=== PATIENT | male | born 2000 | race Hispanic/Latino ===

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

== ENCOUNTER 2018-12-02 15:24 | Emergency (ER) | payer SELFPAY | END 2018-12-02 16:46 | disposition home or self-care (01) | LOC: ERS 15:24 | DX: J02.9 Acute pharyngitis, unspecified (principal); F17.210 Nicotine dependence, cigarettes, uncomplicated | CPT/HCPCS: 99283 ==

== ENCOUNTER 2021-07-16 03:37 | Inpatient (IN) | payer SELFPAY ==
[2021-07-16 03:52] LABS: Hemoglobin 16.9 g/dL (14.0-18.0); Mean Corpuscular HGB CONC 35.4 g/dL (32.0-36.0); Mean Corpuscular Hemoglobin 33.4 pg (27.0-31.0); Mean Corpuscular Volume 94.5 fL (78.0-98.0); Mean Platelet Volume 8.8 fL (7.4-10.4); Platelet Count 253 thou/uL (130-400); RBC Distribution Width 11.2 % (11.5-14.5); Red Blood Cell (RBC) Count 5.04 mill/uL (4.70-6.10); White Blood Cell (WBC) Count 14.6 thou/uL (4.8-10.8)
[2021-07-16 04:05] LABS: ALT (SGPT) 42 U/L (8-55); AST (SGOT) 32 U/L (5-34); Albumin 4.3 g/dL (3.5-5.0); Alkaline Phosphatase 62 U/L (40-110); Anion Gap 25 mmol/L (10-20); BUN (Urea Nitrogen) 13 mg/dL (8.9-20.6); Bilirubin, Total 0.4 mg/dL (0.2-1.2); Calc. Creatinine Clearance 0 mL/min (70-130); Calcium 8.6 mg/dL (7.8-10.44); Carbon Dioxide 13 mmol/L (22-29); Chloride 104 mmol/L (98-107); Globulin 2.5 g/dL (2.4-3.5); Glucose 139 mg/dL (70-105); Lipase 33 U/L (8-78); Potassium 3.7 mmol/L (3.5-5.1); Protein, Total 6.8 g/dL (6.0-8.3); Sodium 138 mmol/L (136-145)
[2021-07-16] MEDS ORDERED: CEFAZOLIN 1 GM VIAL ONE (04:06)
[2021-07-16 04:08] LABS: Prothrombin Time 12.7 sec (12.0-14.7)
[2021-07-16] MEDS ORDERED: ceFAZolin (BATCH) 2 GM/100 ML BAG ONE ×2 (04:08)
[2021-07-16] MEDS ORDERED: Boostrix 0.5 ML (Tdap) VIAL ONE (04:08)
[2021-07-16 04:09] LABS: PTT 26.2 sec (22.9-36.1)
[2021-07-16] MEDS ORDERED: Fentanyl 250 MCG/5 ML VIAL ONE (04:12)
[2021-07-16] MEDS ORDERED: Albumin 5% 0 ML ONE (04:12)
[2021-07-16] MEDS ORDERED: Lorazepam 2 MG/ML VIAL SLOW IVP PRN (04:57)
[2021-07-16] MEDS ORDERED: traMADol HCl 50 MG TAB PO PRN ×2 (04:57)
[2021-07-16] MEDS ORDERED: Ondansetron PF 4 MG/2 ML Vial IVP PRN (04:57)
[2021-07-16] MEDS ORDERED: Promethazine HCl 25 MG/ML VIAL IM PRN ×2 (04:57→14:23)
[2021-07-16] MEDS ORDERED: hydrALAZINE 20 MG/ML VIAL SLOW IVP PRN (04:57)
[2021-07-16] MEDS ORDERED: Sodium Chloride 0.9% 1,000 ML IV SCH ×2 (05:00→15:45)
[2021-07-16 05:14] LABS: Eosinophils 1 % (0-10); Lymphocytes 47 % (21-51); MDiff Complete? YES; Monocytes 5 % (0-10); Neutrophil 40 % (42-75); Platelet Morphology Comment Appears Adequate; RBC Morphology Normal; Reactive Lymphocytes 7 % (0-10)
[2021-07-16 05:36] LABS: Lactic Acid 3.3 mmol/L (0.5-2.2)
[2021-07-16 06:11] LABS: SARS-CoV-2 NAA Rapid Test Not Detected (NotDetected)
[2021-07-16] MEDS ORDERED: Fentanyl 100 MCG/2 ML VIAL ONE (06:22)
[2021-07-16] MEDS: Sodium Chloride 0.9% 1,000 ML IV SCH ×3 (07:42→19:00)
[2021-07-16] MEDS: ceFAZolin (BATCH) 2 GM in Premix Bag 1 BAG IVPB SCH ×3 (07:43→20:21)
[2021-07-16] MEDS: Acetaminophen 500 MG TAB PO SCH ×3 (07:43→17:06)
[2021-07-16] MEDS: Famotidine/PF 20 mg/2ml Vial SLOW IVP SCH ×2 (08:15→20:21)
[2021-07-16] MEDS ORDERED: Iopamidol 370 76% 100 ML VIAL ONE (09:15)
[2021-07-16] MEDS: Morphine 2 MG/ML VIAL SLOW IVP PRN ×2 (10:56→18:11)
[2021-07-16] MEDS ORDERED: HYDROmorphone 0.5 MG/0.5 ML SYRINGE ONE ×2 (12:02→12:16)
[2021-07-16] MEDS ORDERED: ceFAZolin (BATCH) 2 GM in Premix Bag 1 BAG IVPB SCH ×2 (12:30→14:00)
[2021-07-16] MEDS ORDERED: PROPOFOL 200 MG/20 ML VIAL ONE (12:37)
[2021-07-16] MEDS ORDERED: Ondansetron PF 4 MG/2 ML Vial ONE (12:37)
[2021-07-16] MEDS ORDERED: Dexamethasone 20 MG/5 ML VIAL ONE (12:37)
[2021-07-16] MEDS ORDERED: Rocuronium Bromide 10 MG/ML (10ML VIAL) ONE (12:37)
[2021-07-16] MEDS ORDERED: Glycopyrrolate 0.2 MG/ML 5 ML SYRINGE ONE (12:37)
[2021-07-16] MEDS ORDERED: Ketorolac Tromethamine 30 MG/ML VIAL ONE (12:37)
[2021-07-16] MEDS ORDERED: Lidocaine 1% PF 5 ML VIAL ONE (12:37)
[2021-07-16] MEDS ORDERED: HYDROmorphone 2 MG/ML VIAL SLOW IVP PRN (14:23)
[2021-07-16] MEDS ORDERED: Promethazine HCl 25 MG/ML VIAL IVPB PRN (14:23)
[2021-07-16] MEDS ORDERED: Ondansetron HCl/PF 4 MG/2 ML Vial IVP PRN (14:23)
[2021-07-16] MEDS ORDERED: PACU-Morphine 4MG/ML VIAL SLOW IVP PRN (14:23)
[2021-07-16] MEDS: traMADol HCl 50 MG TAB PO SCH (17:06)
[2021-07-16] MEDS: Gabapentin 100 MG CAP PO SCH (20:22)
[2021-07-16] MEDS: Cyclobenzaprine 10 MG TAB PO PRN (22:02)
[2021-07-17] MEDS: Acetaminophen 500 MG TAB PO SCH ×4 (00:25→18:07)
[2021-07-17] MEDS: traMADol HCl 50 MG TAB PO SCH ×4 (00:25→18:08)
[2021-07-17] MEDS: Sodium Chloride 0.9% 1,000 ML IV SCH ×5 (01:44→21:12)
[2021-07-17] MEDS: ceFAZolin (BATCH) 2 GM in Premix Bag 1 BAG IVPB SCH (05:25)
[2021-07-17 07:00] LABS: Hemoglobin 10.1 g/dL (14.0-18.0); Mean Corpuscular HGB CONC 36.3 g/dL (32.0-36.0); Mean Corpuscular Hemoglobin 34.4 pg (27.0-31.0); Mean Corpuscular Volume 94.9 fL (78.0-98.0); Mean Platelet Volume 8.4 fL (7.4-10.4); Platelet Count 155 thou/uL (130-400); RBC Distribution Width 11.1 % (11.5-14.5); Red Blood Cell (RBC) Count 2.95 mill/uL (4.70-6.10); White Blood Cell (WBC) Count 9.4 thou/uL (4.8-10.8)
[2021-07-17 07:03] LABS: Anion Gap 10 mmol/L (10-20); BUN (Urea Nitrogen) 8 mg/dL (8.9-20.6); Calc. Creatinine Clearance 156 mL/min (70-130); Calcium 7.4 mg/dL (7.8-10.44); Carbon Dioxide 24 mmol/L (22-29); Chloride 108 mmol/L (98-107); Glucose 151 mg/dL (70-105); Potassium 3.9 mmol/L (3.5-5.1); Sodium 138 mmol/L (136-145)
[2021-07-17 07:31] LABS: Band 10 % (5-11); Lymphocytes 10 % (21-51); MDiff Complete? YES; Monocytes 16 % (0-10); Neutrophil 64 % (42-75); Platelet Morphology Comment Appears Adequate; Polychromasia SLIGHT = 2-3 cells (100X) (0-2/hpf)
[2021-07-17] MEDS: Gabapentin 100 MG CAP PO SCH ×3 (09:18→20:25)
[2021-07-17] MEDS: Famotidine/PF 20 mg/2ml Vial SLOW IVP SCH ×2 (09:18→20:26)
[2021-07-17 12:05] VITALS: BMI 25.7
[2021-07-17] MEDS: Cyclobenzaprine 10 MG TAB PO PRN (20:25)
[2021-07-18] MEDS: traMADol HCl 50 MG TAB PO SCH ×4 (00:15→18:30)
[2021-07-18] MEDS: Acetaminophen 500 MG TAB PO SCH ×4 (00:15→18:29)
[2021-07-18] MEDS: Sodium Chloride 0.9% 1,000 ML IV SCH (06:35)
[2021-07-18] MEDS ORDERED: Enoxaparin Sodium 40 MG/0.4 ML SYRINGE SC SCH (09:00)
[2021-07-18] MEDS: Gabapentin 100 MG CAP PO SCH ×2 (09:53→16:03)
[2021-07-18] MEDS: Famotidine/PF 20 mg/2ml Vial SLOW IVP SCH (09:54)
[2021-07-18 10:26] LABS: #Eosinphils 0.1 thou/uL (0.0-0.7); #Lymphocytes 2.8 thou/uL (1.20-3.40); #Monocytes 1.1 thou/uL (0.11-0.59); %Basophils 0.3 % (0.0-1.0); %Eosinophils 1.5 % (0.0-10.0); %Lymphocytes 30.6 % (21.0-51.0); %Monocytes 12.1 % (0.0-10.0); %Neutrophils 55.5 % (42.0-75.0); Hemoglobin 10.1 g/dL (14.0-18.0); Mean Corpuscular HGB CONC 33.8 g/dL (32.0-36.0); Mean Corpuscular Hemoglobin 32.6 pg (27.0-31.0); Mean Corpuscular Volume 96.3 fL (78.0-98.0); Mean Platelet Volume 8.4 fL (7.4-10.4); Platelet Count 149 thou/uL (130-400); RBC Distribution Width 11.1 % (11.5-14.5); Red Blood Cell (RBC) Count 3.08 mill/uL (4.70-6.10)
[2021-07-18 10:41] LABS: Anion Gap 12 mmol/L (10-20); BUN (Urea Nitrogen) 6 mg/dL (8.9-20.6); Calc. Creatinine Clearance 181 mL/min (70-130); Calcium 8.2 mg/dL (7.8-10.44); Carbon Dioxide 26 mmol/L (22-29); Chloride 105 mmol/L (98-107); Glucose 116 mg/dL (70-105); Potassium 3.7 mmol/L (3.5-5.1); Sodium 139 mmol/L (136-145)
[2021-07-18 16:04] VITALS: BP 119/66; TEMP 98
== END 2021-07-18 18:44 | disposition home or self-care (01) | DRG 493 ==
LOC: ERS 03:37 → CCU 04:57 → EEVIPCON 04:57 → SURG A 15:19
PROVIDERS: ADMIT Nurse Practitioner Acute Care; ATTEND Surgery
PROC: 0QSG04Z Reposition Right Tibia with Internal Fixation Device, Open Approach (ICD-10-PCS; principal; 2021-07-16)
PROC: 0LBQ0ZZ Excision of Right Knee Tendon, Open Approach (ICD-10-PCS; 2021-07-16)
DX: S82.141A Displaced bicondylar fracture of right tibia, initial encounter for closed fracture (principal); S22.41XA Multiple fractures of ribs, right side, initial encounter for closed fracture; S27.321A Contusion of lung, unilateral, initial encounter; S21.141A Puncture wound with foreign body of right front wall of thorax without penetration into thoracic cavity, initial encounter; Z20.822 Contact with and (suspected) exposure to COVID-19; X95.9XXA Assault by unspecified firearm discharge, initial encounter; S42.101A Fracture of unspecified part of scapula, right shoulder, initial encounter for closed fracture
CPT/HCPCS: 36415; 71045; 75635; 76000; 80048; 80053; 83605; 83690; 85025; 85610; 85730; 86850; 86900; 86901; 90715; C1713; J0690; J1100; J1170; J1650; J1885; J2270; J2405; J2704; J3010; J7050; P9045; Q9967; S0028; U0002